=== PATIENT | male | born 1990 | race Caucasian/White ===

== ENCOUNTER 2020-05-30 10:14 | Emergency (ER) | payer SELFPAY ==
[~2020-05-30] VITALS: Ht 170.2 cm; Wt 65.8 kg
[2020-05-30 12:24] VITALS: BP 122/78
== END 2020-05-30 12:26 | disposition home or self-care (01) ==
LOC: ER 10:14
DX: J02.9 Acute pharyngitis, unspecified (principal); F17.210 Nicotine dependence, cigarettes, uncomplicated; Z20.828 Contact with and (suspected) exposure to other viral communicable diseases
CPT/HCPCS: 36415; 71045; 87426

== ENCOUNTER 2020-12-27 23:38 | Emergency (ER) | payer SELFPAY ==
[~2020-12-27] VITALS: Ht 167.6 cm; Wt 72.6 kg
[2020-12-27 23:39] VITALS: BP 129/78
== END 2020-12-28 00:40 ==
LOC: ER 23:42
DX: E86.0 Dehydration (principal); F17.210 Nicotine dependence, cigarettes, uncomplicated